=== PATIENT | female | born 1970 | race Caucasian/White ===

== ENCOUNTER 2022-10-21 20:09 | Emergency (ER) | payer BC, OTHER ==
[2022-10-21] MEDS ORDERED: valACYclovir 1,000 MG Tab PO ONE (20:14)
[2022-10-21] MEDS ORDERED: predniSONE 20 MG Tab PO ONE (20:14)
== END 2022-10-21 21:08 | disposition home or self-care (01) ==
LOC: JP.ED 20:09
DX: B02.9 Zoster without complications (principal)
CPT/HCPCS: 99282; A9270; J7512